=== PATIENT | female | born 1995 | race Asian ===

== ENCOUNTER 2023-02-20 11:39 | Emergency (ER) | payer BC ==
[~2023-02-20] VITALS: Ht 165.1 cm; Wt 108.9 kg
[2023-02-20 12:36] VITALS: BP 135/74; TEMP 100
== END 2023-02-20 12:43 | disposition home or self-care (01) ==
LOC: ED 11:39
DX: J40 Bronchitis, not specified as acute or chronic (principal)
CPT/HCPCS: 81002; 81025; 99283

== ENCOUNTER 2023-02-21 11:51 | Emergency (ER) | payer BC ==
[~2023-02-21] VITALS: Ht 165.1 cm; Wt 108.9 kg
[2023-02-21 12:33] LABS: PLATELET COUNT 216 K/uL (152-353)
[2023-02-21 13:40] VITALS: BP 123/78; TEMP 99
== END 2023-02-21 13:40 | disposition home or self-care (01) ==
LOC: ED 11:51
PROVIDERS: Family Medicine
DX: J10.1 Influenza due to other identified influenza virus with other respiratory manifestations (principal); J02.9 Acute pharyngitis, unspecified
CPT/HCPCS: 36415; 85007; 85027; 87502; 87651; 96372; 99283; J1885

== ENCOUNTER 2023-02-28 16:38 | Emergency (ER) | payer BC ==
[~2023-02-28] VITALS: Ht 165.1 cm; Wt 108.9 kg
[2023-02-28 16:47] VITALS: TEMP 98.7
[2023-02-28 17:56] LABS: PLATELET COUNT 259 K/uL (152-353)
[2023-02-28 18:06] LABS: POTASSIUM 3.7 mmol/L (3.6-5.2)
[2023-02-28 18:45] VITALS: BP 113/69
== END 2023-02-28 18:45 | disposition home or self-care (01) ==
LOC: ED 16:38
PROVIDERS: Family Medicine
DX: J40 Bronchitis, not specified as acute or chronic (principal); J10.1 Influenza due to other identified influenza virus with other respiratory manifestations
CPT/HCPCS: 36415; 80053; 85027; 85379; 87502; 94664; 96372; 99283; J2930